=== PATIENT | male | born 1980 | race Caucasian/White ===

== ENCOUNTER 2021-03-29 11:02 | Emergency (ER) | payer BC ==
[2021-03-29 11:09] VITALS: BP 163/93; PULSE 59; TEMP 97.5; BMI 31.7
[2021-03-29] MEDS ORDERED: SODIUM CHLORIDE 0.9% 500 ML INFUS.BAG IV ONE (11:53)
[2021-03-29 12:31] LABS: EOS % 4.1 % (0-4.5); HEMATOCRIT 46.2 % (35.4-49); HEMOGLOBIN 15.3 GM/dL (11.7-16.9); LYMPH % 20.7 % (8-40); MCH 28.3 pg (25.7-33.7); MEAN CELL VOLUME 85.8 fl (80-96); MEAN PLT VOLUME 10.3 fl (7.5-11.1); MONO % 10.4 % (3.8-10.2); NEUT % 63.8 % (42.8-82.8); PLATELET COUNT 217 10^3/uL (134-434); RBC 5.38 M/mm3 (4.00-5.60); RDW 15.5 % (11.9-15.9); WHITE BLOOD COUNT 5.2 K/mm3 (4.0-10.0)
[2021-03-29 12:37] LABS: INR 0.97 (0.83-1.09); PROTHROMBIN TIME (PATIENT) 11.4 SEC (9.7-13.0)
[2021-03-29 12:40] LABS: ACTIVATED PTT 32.7 SECONDS (25.2-36.5)
[2021-03-29 12:49] LABS: CALCIUM 8.9 mg/dL (8.5-10.1)
[2021-03-29 12:51] LABS: ALBUMIN 3.6 g/dl (3.4-5.0); BLOOD UREA NITROGEN 16.1 mg/dL (7-18)
[2021-03-29 12:55] LABS: BILIRUBIN,TOTAL 1.9 mg/dL (0.2-1)
[2021-03-29 13:29] LABS: EPI CELLS 28 /uL (0-25.1); HYALINE CASTS 1 /uL (0-3.1); URINE APPEARANCE CLOUDY; URINE BACTERIA 72 /uL (0-1359); URINE BILIRUBIN NEGATIVE (NEGATIVE); URINE COLOR DK YELLOW; URINE GLUCOSE (UA) NEGATIVE (NEGATIVE); URINE KETONE TRACE (NEGATIVE); URINE LEUK ESTERASE 1+ (NEGATIVE); URINE NITRITE NEGATIVE (NEGATIVE); URINE PROTEIN TRACE (NEGATIVE); URINE RBC 2983 /uL (0-23.9); URINE WBC 75 /uL (0-25.8)
== END 2021-03-29 16:09 | disposition home or self-care (01) ==
LOC: JER 11:02
DX: N20.0 Calculus of kidney (principal)
CPT/HCPCS: 36415; 74176-TC; 76775-TC; 80053; 81003; 82550; 82553; 85025; 85610; 85730; 87086; 99285-25